=== PATIENT | female | born 1955 | race Caucasian/White ===

== ENCOUNTER 2018-07-09 09:28 | Emergency (ER) | payer MEDICARE ==
--- NOTE | 2018-07-09 09:40 | Emergency Department Record ---
History of Present Illness - General Chief Complaint: Knee injury Stated Complaint: LEFT KNEE PAIN Source: Patient Mode of Arrival: Ambulatory Limitations: No limitations - History of Present Illness Initial Comments: 63 yo female presents with one week of left knee pain. No injury. No swelling. No weakness. No left knee history of problems. It hurts to walk up and down steps. No warmth, redness, fever, trauma, or other joints involved. No calf or achilles tenderness. PCP is Hillary Moise MD Complaint: Knee injury -: Week(s) (1) Type of Injury: Other (Hurts to walk up and down steps) Severity: Moderate Improves With: Rest Worsens With: Movement, Weight bearing Context: Walking Associated Symptoms: Ambulatory, Able to partially bear weight - Related Data Home Medications Medication Instructions Recorded Confirmed Last Taken Alprazolam 0.25 mg PO ASDIR 07/09/18 07/09/18 06/28/18 Hydrochlorothiazide [Hctz] 25 mg PO DAILY 07/09/18 07/09/18 07/09/18 Hydrocodone/Acetaminophen 1 tab PO Q6HR PRN 07/09/18 07/09/18 07/05/18 [Hydrocodone/Acetaminophen 5mg/325mg] Levothyroxine Sodium 100 mcg PO DAILY 07/09/18 07/09/18 07/09/18 Allergies Allergy/AdvReac Type Severity Reaction Status Date / Time No Known Allergies Allergy PT UNSURE Verified 07/09/18 09:30 OF REACTION Review of Systems Constitutional: Denies: Chills, Fever, Malaise, Weakness Eyes: Denies: Eye discharge ENT: Denies: Congestion, Throat pain Respiratory: Denies: Cough Cardiovascular: Denies: Chest pain Endocrine: Denies: Fatigue Gastrointestinal: Denies: Abdominal pain, Diarrhea, Nausea, Vomiting Genitourinary: Denies: Dysuria Musculoskeletal: Reports: As per HPI, Arthralgia Skin: Denies: Bruising, Change in color, Rash Neurological: Denies: Numbness, Weakness Psychiatric: Denies: Anxiety Hematological/Lymphatic: Denies: Easy bleeding, Easy bruising Physical Exam - General General Appearance: Alert, Oriented x3, Cooperative, No acute distress Limitations: No limitations - Head Head exam: Atraumatic, Normal inspection - Eye Eye exam: Normal appearance - ENT ENT exam: Normal exam Ear exam: Normal external inspection Nasal Exam: Normal inspection Mouth exam: Normal external inspection - Neck Neck exam: Normal inspection - Cardiovascular Peripheral Pulses: 2+: Dorsalis Pedis (L) - Rectal Rectal exam: Deferred - exam: Deferred - Extremities Extremities exam: Normal inspection, Full ROM, Tenderness. negative: Calf tenderness, Joint swelling, Normal capillary refill, Pedal edema Image of Full Body: 1 - anterior tenderness, no swelling, no calf tenderness, no medial or lateral joint line tenderness, tender over the patella and with patellar tracking - Back Back exam: Reports: Normal inspection - Neurological Neurological exam: Alert, Oriented X3 - Psychiatric Psychiatric exam: Normal affect, Normal mood - Skin Skin exam: Dry, Intact, Normal color, Warm. negative: Cyanosis, Diaphoretic, Erythema, Mottled Course - Reevaluation(s) Reevaluation #1: 07/09/18 09:55 The XR was reviewed. Degenerative changes noted throughout the knee tri- compartmental involvement. Trace effusion, fracture or dislocation. We discussed the XR findings and a referral to orthopedics for further evaluation She was provided crutches to minimize weight bearing 07/09/18 10:12 Disposition Disposition: Discharge Clinical Impression: Osteoarthritis Left knee sprain Qualifiers: Encounter type: initial encounter Involved ligament of knee: unspecified ligament Qualified Code(s): S83.92XA - Sprain of unspecified site of left knee, initial encounter Disposition: Home, Self-Care Condition: (1) Good Instructions: Knee Sprain (ED) Additional Instructions: Ice the knee 2-3 times daily Call your doctor for close follow up Use the crutches for support and to minimize weight bearing Referrals: PRISCILLA BAXTER [DOCTOR OF OSTEOPATH] - [facility] [Provider Group] Forms: Patient Portal Access Time of Disposition: 09:57 Quality - Quality Measures Quality Measures: N/A - Blood Pressure Screening Does Patient Have Any of the Following: No Blood Pressure Classification: Normal BP Reading Systolic Measurement: 112 Diastolic Measurement: 70 Screening for High Blood Pressure: < Normal BP, F/U Not Required > [G8783] Pre-Hypertensive Follow-up Interventions: Referral to alternative/primary care provider.
[2018-07-09] MEDS ORDERED: IPRATROPIUM/ALBUTEROL (0.5MG/3MG) NEB INH ONE (10:13)
--- NOTE | 2018-07-11 08:04 | RADIOLOGY REPORT ---
EXAM: LEFT KNEE HISTORY: ANTERIOR LEFT KNEE PAIN FOR THE PAST WEEK. NO KNOWN INJURY. TECHNIQUE: Four views of the left knee were obtained. Comparison: 04/05/11. FINDINGS: There are moderate tricompartmental arthritic changes which are greatest in the medial and patellofemoral compartments. Marginal osteophytes are present throughout. A small suprapatellar joint effusion is present. Mild enthesophyte formation is present at the upper pole of the patella. There is no acute fracture or destructive process. IMPRESSION: 1. MODERATE TRICOMPARTMENTAL ARTHRITIC CHANGES AND TINY JOINT EFFUSION. 2. NO ACUTE OSSEOUS ABNORMALITY. [facility]BER: [id number] [facility]
== END 2018-07-09 10:12 | disposition home or self-care (01) ==
LOC: ER 09:28
DX: S83.92XA Sprain of unspecified site of left knee, initial encounter (principal); M17.12 Unilateral primary osteoarthritis, left knee; X58.XXXA Exposure to other specified factors, initial encounter
CPT/HCPCS: 99283